=== PATIENT | female | born 1990 | race Caucasian/White ===

== ENCOUNTER 2017-01-23 12:01 | Emergency (ER) | payer MEDICAID ==
[~2017-01-23] VITALS: Ht 162.6 cm; Wt 84.2 kg
[~2017-01-23 12:01] MED LIST: METH-356 PO
[2017-01-23 13:19] LABS: BLOOD UREA NITROGEN 10 mg/dL (7-18)
[2017-01-23 13:22] LABS: ASPARTATE AMINO TRANSFERASE 8 U/L (15-37)
[2017-01-23 13:23] LABS: ACETAMINOPHEN < 2 mcg/mL (10-30)
[2017-01-23] MEDS ORDERED: TOPI100T94 PO (16:02)
[2017-01-23] MEDS ORDERED: PALI6TAB3 PO (16:04)
[2017-01-23] MEDS ORDERED: BREX1TAB PO (16:09)
[2017-01-23] MEDS ORDERED: LORazepam 2 MG/ML, 1ML IVPush ONE (16:30)
[2017-01-23] MEDS ORDERED: SODIUM CHLORIDE 0.9% 1,000ML IVBOLUS ONE (16:30)
[2017-01-23 17:13] LABS: DAU SCREEN DISCLAIMER
[2017-01-23 17:26] LABS: HCG UR OBC PASS
[2017-01-23] MEDS ORDERED: LORazepam 1MG TABLET ONE (17:28)
[2017-01-23] MEDS ORDERED: LORazepam 1MG TABLET PO ONE (17:30)
[2017-01-23 17:53] VITALS: BP 113/75
== END 2017-01-23 18:14 | disposition home or self-care (01) ==
LOC: ED 16:17
DX: F28 Other psychotic disorder not due to a substance or known physiological condition (principal); F41.1 Generalized anxiety disorder; F20.9 Schizophrenia, unspecified
CPT/HCPCS: 36415; 80053; 80307; 80329; 81003; 81025; 85025; 93005; G0480

== ENCOUNTER 2021-06-01 14:46 | Emergency (ER) | payer MEDICAID ==
[~2021-06-01] VITALS: Ht 162.6 cm; Wt 79.2 kg
[2021-06-01 17:06] VITALS: BP 111/81
== END 2021-06-01 17:42 | disposition home or self-care (01) ==
LOC: ED 17:35
DX: R55 Syncope and collapse (principal); R42 Dizziness and giddiness; M54.2 Cervicalgia